=== PATIENT | male | born 1950 | race Two or more races ===

== ENCOUNTER → 2024-12-05 | Emergency (ER) | payer MEDICAID, OTHER ==
[~2024-12-05] VITALS: Ht 157.5 cm; Wt 69.1 kg
[2024-12-05 16:02] VITALS: BP 107/55; PULSE 65; RESP 18; TEMP 97.7; O2SAT 100
== END | disposition left against medical advice (07) ==
LOC: EMS 15:47
DX: Z53.21 Procedure and treatment not carried out due to patient leaving prior to being seen by health care provider (principal)
CPT/HCPCS: 86592